=== PATIENT | female | born 1955 | race African-American/Black ===

== ENCOUNTER 2017-03-05 10:34 | Inpatient (IN) | END 2017-03-08 19:00 | disposition home or self-care (01) | DRG 517 ==

== ENCOUNTER 2018-04-19 09:13 | Day surgery (SDC) | payer OTHER ==
--- NOTE | 2018-03-25 17:30 | CONS ---
DATE OF ADMISSION: 03/05/2017 DATE OF CONSULTATION: CONSULTATION: Preoperative Gastroenterology. Dear Dr. Hercules: I thank you very much for this kind referral. Ms. Whit Moore is a 63-year-old female patient who has been referred to me for further evaluation of change in the bowel habit. The patient never had screening colonoscopy. Her appetite is good, no weight loss. No upper abdominal pain, nausea or vomiting. Not on nonsteroidal anti-inflammatory agents. No history of gallstones or liver disease. Not a hypertensive or diabetic. No heart disease. She has history of bronchial asthma. No kidney disease. SOCIAL HISTORY: Nonsmoker. No alcohol abuse. FAMILY HISTORY: No family history of gastrointestinal tract neoplasm. ALLERGIES: ALLERGIC TO PENICILLIN AND IODINE. MEDICATIONS: None. PHYSICAL EXAMINATION: VITAL SIGNS: She is 5 feet 10 inches tall and weighs 147 pounds. HEART: Normal heart sounds. LUNGS: Clear. ABDOMEN: Soft, no masses. Normal bowel sounds. NEUROLOGIC: Normal neurological exam. IMPRESSION: 1. Change in the bowel habit. 2. The patient never had screening colonoscopy. 3. History of bronchial asthma. 4. ALLERGY TO PENICILLIN AND IODINE. PLAN: Screening colonoscopy. The procedure and possible complications are well explained to the patient. The patient understands and consents to the procedure. I thank you once again. With warmest personal regards, Dictated By: RAUL SMITH/NTS Conf#: [id number] DID#: [id number] CC: LYLE BARRIGA MD;*EndCC*
[~2018-04-19] VITALS: Ht 177.8 cm; Wt 72.1 kg
[2018-04-19 10:38] VITALS: Ht 177.8 cm; Wt 72.1 kg
[2018-04-19 10:54] VITALS: BP 138/75; PULSE 61; RESP 13
[2018-04-19] MEDS ORDERED: FENTAnyl 50 MCG/ML VIAL ONE (11:25)
[2018-04-19] MEDS ORDERED: MIDAZOLAM 1 MG/ML 2 ML INJ ONE ×2 (11:25)
[2018-04-19 11:45] VITALS: BP 110/66; PULSE 58; RESP 18
== END 2018-04-19 16:44 | disposition home or self-care (01) ==
LOC: GIL 09:13
PROVIDERS: ATTEND Internal Medicine Gastroenterology
DX: Z12.11 Encounter for screening for malignant neoplasm of colon (principal); K64.8 Other hemorrhoids
CPT/HCPCS: 45378; J2250; J3010